=== PATIENT | male | born 1965 ===

== ENCOUNTER 2021-01-28 10:52 | Outpatient (CLI) | payer OTHER | END 2021-01-28 11:04 | disposition home or self-care (01) | LOC: MRI 10:52 | PROVIDERS: ATTEND General Practice | DX: M43.17 Spondylolisthesis, lumbosacral region (principal); I10 Essential (primary) hypertension; E78.49 Other hyperlipidemia; R97.20 Elevated prostate specific antigen [PSA]; M54.42 Lumbago with sciatica, left side | CPT/HCPCS: 72148 ==

== ENCOUNTER 2022-09-01 11:12 | Outpatient (CLI) | payer OTHER | END 2022-09-01 11:24 | disposition home or self-care (01) | LOC: SONOGRAMA 11:12 | PROVIDERS: ATTEND General Practice | DX: R10.2 Pelvic and perineal pain (principal); N39.0 Urinary tract infection, site not specified; N30.90 Cystitis, unspecified without hematuria ==